=== PATIENT | male | born 2000 | race African-American/Black ===

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

== ENCOUNTER 2020-06-22 17:10 | Emergency (ER) | payer OTHER ==
[~2020-06-22] VITALS: Ht 175.3 cm; Wt 68.0 kg
[2020-06-22 17:15] VITALS: BP 122/78
[2020-06-22] MEDS ORDERED: IBUPROFEN 600MG TABLET PO ONE (18:30)
[2020-06-22] MEDS ORDERED: BACITRACIN ZINC OINT UDPKT TOP ONE (19:15)
== END 2020-06-22 20:25 | disposition home or self-care (01) ==
LOC: ER 17:10
DX: S41.152A Open bite of left upper arm, initial encounter (principal); Z91.010 Allergy to peanuts; W54.0XXA Bitten by dog, initial encounter; Y35.893A Legal intervention involving other specified means, suspect injured, initial encounter; Y92.9 Unspecified place or not applicable
CPT/HCPCS: 73060; 99283